=== PATIENT | male | born 1940 | race Caucasian/White ===

== ENCOUNTER 2018-01-21 11:28 | Emergency (ER) | payer OTHER, MEDICAID ==
[2018-01-21] MEDS: ONDANSETRON (ODT) 4 MG TAB ODT (12:36)
[2018-01-21] MEDS: HYDROCODONE/APAP (5/325) TAB PO (12:36)
== END 2018-01-21 14:34 | disposition home or self-care (01) ==
LOC: FTE 11:28
DX: M25.561 Pain in right knee (principal)
CPT/HCPCS: 73562; 99283-25